=== PATIENT | female | born 1965 | race Caucasian/White ===

== ENCOUNTER 2021-06-05 06:00 | Day surgery (SDC) | payer MEDICAID, SELFPAY ==
[~2021-06-05] VITALS: Ht 165.1 cm; Wt 84.8 kg
[2021-06-05] MEDS ORDERED: MIDAZOLAM HCL 5 MG/5 ML VIAL ONE (06:26)
[2021-06-05] MEDS ORDERED: fentaNYL CITRATE/PF 100 MCG/2 ML AMP ONE (06:26)
[2021-06-05] MEDS ORDERED: SIMETHICONE 40 MG/0.6 ML ML ONE (06:26)
[2021-06-05] MEDS ORDERED: ONDANSETRON HCL 4 MG/2 ML VIAL ONE (08:06)
[2021-06-05 13:36] VITALS: BP_SYST 162
== END 2021-06-05 10:05 | disposition home or self-care (01) ==
LOC: SDS 06:00 → SMU 06:00 → SDS 08:15
PROVIDERS: ATTEND Internal Medicine
DX: Z12.11 Encounter for screening for malignant neoplasm of colon (principal); D12.5 Benign neoplasm of sigmoid colon; K57.30 Diverticulosis of large intestine without perforation or abscess without bleeding; Z79.899 Other long term (current) drug therapy; Z20.822 Contact with and (suspected) exposure to COVID-19
CPT/HCPCS: 36415; 45380; 45381; 87426; 88305; 99152; G0378; J2250; J2405; J3010; U0003